=== PATIENT | female | born 1990 | race Caucasian/White ===

== ENCOUNTER 2020-02-06 09:36 | Emergency (ER) | payer BC ==
[2020-02-06] MEDS ORDERED: Rhogam Plus 300 MCG IM ONE (09:37)
[2020-02-06 09:54] VITALS: BP 119/81
[2020-02-06 14:32] VITALS: PULSE 80; O2SAT 98
[2020-02-06 15:06] LABS: ABO TYPING A; Antibody Screen NEGATIVE (NEGATIVE); RH TYPING NEGATIVE
[2020-02-06 15:09] LABS: Appearance CLEAR (CLEAR); Bacteria RARE /HPF (NEGATIVE); Bilirubin NEGATIVE (NEGATIVE); Blood MODERATE Ery/ul (0-5); Epithelial Cells RARE /HPF (FEW); Glucose NEGATIVE (NEGATIVE); Ketones NEGATIVE (NEGATIVE); Leukocyte Esterase SMALL (NEGATIVE); Nitrite NEGATIVE (NEGATIVE); Protein,Urine Dip NEGATIVE (Negative); Specific Gravity 1.005 (1.005-1.025); Urobilinogen NEGATIVE mg/dL (0-1)
[2020-02-06 15:11] LABS: Bacteria Few; Clue Cells None Seen; Red Blood Cells Few; Trichomonas None Seen; White Blood Cells Few; Yeast None Seen
[2020-02-06 15:12] LABS: Hematocrit 37.5 % (35-47); Hemoglobin 11.9 gm/dl (12.0-16.0); Mean Cell Volume 82.2 fl (78-100); Mean Corpuscular Hemoglobin 26.1 pg (26-32); Mean Corpuscular Hgb Concent. 31.7 g/dl (32-36); Red Blood Count 4.56 M/mm3 (4.1-5.4); White Blood Count 8.8 K/mm3 (4.0-10.5)
[2020-02-06 15:13] LABS: Absolute Neutrophil Ct (ANC) 6.24 (1.4-6.9); BASOPHIL % 0.1 % (0.0-0.4); Basophil (Absolute #) 0.01 (0-0.4); Eosinophil (Absolute #) 0.18 (0-0.5); Glucose 87 mg/dL (74-106); Lymphocyte (Absolute #) 1.87 (1.0-4.6); Lymphocytes % 21.2 % (24.0-44.0); Mean Platelet Volume 11.3 fl (7.5-11.0); Monocyte (Absolute #) 0.54 (0.0-1.3); Monocytes % 6.1 % (0.0-12.0); Neutrophil % 70.6 % (36.0-66.0); Platelet Count 195 K/mm3 (150-450); Red Cell Distribution Width 14.6 % (11.5-14.0)
[2020-02-06 15:14] LABS: ALBUMIN 4.4 g/dL (3.5-5.0); ALKALINE PHOSPHATASE 58 U/L (38-126); BLOOD UREA NITROGEN 6 mg/dL (7-17); CHLORIDE 105 mmol/L (98-107); Calcium 9.7 mg/dL (8.4-10.2); Carbon Dioxide 26 mmol/L (22-30); Creatinine 1 0.77 mg/dL (0.52-1.04); Potassium 4.4 mmol/L (3.5-5.1); SGOT/AST 23 U/L (14-36); SGPT/ALT 17 U/L (0-35); SODIUM 138 mmol/L (137-145); Total Protein 7.5 g/dL (6.3-8.2)
[2020-02-06 15:15] LABS: ANION GAP 11.4 MEQ/L (5-15)
[2020-02-06 15:21] LABS: CHLAMYDIA DNA NEGATIVE (NEGATIVE); GC DNA Probe NEGATIVE (NEGATIVE)
--- NOTE | 2020-02-06 17:02 | XRAY ---
Indication: Bleeding. Two-dimensional transvaginal early OB ultrasound performed. Comparison: None for this . Uterus anteverted with single intrauterine gestational sac near the fundus. Mean sac diameter is 0.67 cm, too small to calculate gestational age. No pole, heart tones, or yolk sac also suggesting early . Left ovary demonstrates a 3.4 cm corpus luteal cyst. Remaining left and right ovaries unremarkable. No suspicious solid adnexal mass or free fluid. Impression: Single intrauterine gestational sac without pole/heart tones presumed early . Correlate with serial beta hCG and follow-up sonogram regarding viability.
== END 2020-02-06 13:58 | disposition home or self-care (01) ==
LOC: ED 09:36
DX: O26.851 Spotting complicating pregnancy, first trimester (principal); Z3A.01 Less than 8 weeks gestation of pregnancy
CPT/HCPCS: 36415; 76801; 80053; 81001; 84702; 84703; 85025; 86850; 86900; 86901; 87086; 87210; 87491; 87591; 96372; 99284; J2790

== ENCOUNTER 2020-02-20 11:20 | Emergency (ER) | payer BC ==
[2020-02-20] MEDS ORDERED: Sodium Chloride 0.9% 1000 ML 1,000 ML IV STA (11:54)
[2020-02-20] MEDS ORDERED: Pepcid 20 MG VIAL IV ONE ×2 (11:54→12:14)
[2020-02-20] MEDS ORDERED: Zofran 4 MG/2 ML VIAL IV ONE (11:54)
--- NOTE | 2020-02-20 12:07 | ERPHSYRPT ---
- History of Present Illness Time Seen by Provider: 02/20/20 11:41 Source: patient Exam Limitations: no limitations Patient Subjective Stated Complaint: vomiting Triage Nursing Assessment: pt to ED c/o vomiting since Wednesday morning. Saw Dr. Timmons Wednesday and was sent to ED for fluids. Kelvin changed meds but pt states vomiting has not decreased. last sucessful PO intake was Wednesday after leaving ED. has not been able to keep fluids or food down since. Pt reports hx vomiting during , states Dr Timmons informed pt she was possibly having mi scarriage. has been taking phenergan with no relief. denies pain at this time. bowel sounds active in all quads, pt states LBM 02/15. denies fever or COVID exposure Physician History: 29 years old 2 para 1 not sure about gestational age with history of hyperemesis gravidarum in previous presented in the ER with gradually worsening nausea and vomiting for the last 5 days. Patient reports she is unable to hold anything down. She has been switched to a different antiemetic with no improvement. She has been given fluid resuscitation. Denies any abdom inal pain/cramping, vaginal bleeding or discharge. Last ultrasound done almost 2 weeks ago showed gestational sac without pole but per patient her hCG was going up. She has been informed by Dr. Timmons but possible miscarriage. She has been dry heaving and vomiting so hard that now she has some taste of blood in her throat and noted some specks of blood in vomiting. No fever or chills reported. Timing/Duration: day(s) (5), gradual onset, worse Severity: severe Associated Symptoms: nausea, vomiting, weakness, No abdominal pain Allergies/Adverse Reactions: No Known Drug Allergies Allergy (Verified 02/20/20 11:37) Home Medications: Doxylamine Succinate/Vit B6 [Doxylamine-Pyridoxine 10-10 mg] 1 each PO BID 02/20/20 [History] Promethazine HCl 25 mg [Phenergan 25 mg] 25 mg PO DAILY 02/20/20 [History] Hx Tetanus, Diphtheria Vaccination/Date Given: Yes Hx Influenza Vaccination/Date Given: No Hx Pneumococcal Vaccination/Date Given: No Travel Risk - International Travel Have you traveled outside of the country in past 3 weeks: No - Coronavirus Screening Are you exhibiting any of the following symptoms?: Yes Symptoms: Vomiting/Diarrhea Close contact with a COVID-19 positive Pt in past 14-21 Days: No - Review of Systems Constitutional: Weakness Eyes: No Symptoms Ears, Nose, & Throat: No Symptoms Respiratory: No Symptoms Cardiac: No Symptoms Abdominal/Gastrointestinal: Nausea, Vomiting Genitourinary Symptoms: No Symptoms Musculoskeletal: No Symptoms Skin: No Symptoms Neurological: No Symptoms Psychological: No Symptoms Endocrine: No Symptoms Hematologic/Lymphatic: No Symptoms Immunological/Allergic: No Symptoms - Past Medical History Pertinent Past Medical History: No Neurological History: No Pertinent History ENT History: No Pertinent History Cardiac History: No Pertinent History Respiratory History: No Pertinent History Endocrine Medical History: No Pertinent History Musculoskeletal History: No Pertinent History GI Medical History: No Pertinent History History: No Pertinent History Psycho-Social History: No Pertinent History Female Reproductive Disorders: No Pertinent History - Past Surgical History Past Surgical History: Yes (Behind ear) Neuro Surgical History: No Pertinent History Cardiac: No Pertinent History Respiratory: No Pertinent History Gastrointestinal: No Pertinent History Genitourinary: No Pertinent History Musculoskeletal: No Pertinent History Female Surgical History: No Pertinent History Other Surgical History: LEFT EAR SURGERY, cyst removed from L Foot - Social History Smoking Status: Never smoker Exposure to second hand smoke: No Drug Use: none Patient Lives Alone: No - Female History Hx Now: No - Nursing Vital Signs Nursing Vital Signs: Initial Vital Signs Pulse Rate 78 02/20/20 12:26 Respiratory Rate 18 02/20/20 12:26 Blood Pressure 126/74 02/20/20 12:26 O2 Sat by Pulse Oximetry 98 02/20/20 12:26 Pain Scale Pain Intensity 0 - Physical Exam General Appearance: no apparent distress, alert Eye Exam: PERRL/EOMI, scleral icterus Ears, Nose, Throat Exam: normal ENT inspection, TMs normal, pharynx normal Neck Exam: normal inspection, non-tender, supple, full range of motion Respiratory Exam: normal breath sounds Cardiovascular Exam: regular rate/rhythm, normal heart sounds Gastrointestinal/Abdomen Exam: soft, normal bowel sounds, No tenderness Back Exam: normal inspection Extremity Exam: normal inspection, normal range of motion Neurologic Exam: alert, oriented x 3, cooperative Skin Exam: normal color, warm SpO2 Interpretation: normal O2 Delivery: Room Air Ordered Tests: Active Orders 24 hr Category Date Time Status IV Insertion STAT Care 02/20/20 11:54 Active AMYLASE Stat Lab 02/20/20 12:01 Completed CBC W DIFF Stat Lab 02/20/20 12:01 Completed CMP Stat Lab 02/20/20 12:01 Completed HCG, Quantitative (Inhouse) Stat Lab 02/20/20 12:01 Completed LIPASE Stat Lab 02/20/20 12:01 Completed UA W/RFX UR CULTURE Stat Lab 02/20/20 12:26 Ordered Medication Summary Discontinued Medications Generic Name Dose Route Start Last Admin Trade Name Freq PRN Reason Stop Dose Admin Famotidine 20 mg 02/20/20 11:54 02/20/20 12:17 Pepcid 20 Mg Vial IV 02/20/20 11:55 20 mg STAT ONE Administration Famotidine Confirm 02/20/20 12:14 Pepcid 20 Mg Vial Administered 02/20/20 12:15 Dose 20 mg IV .STK-MED ONE Sodium Chloride 1,000 mls @ 999 mls/hr 02/20/20 11:54 02/20/20 13:29 Sodium Chloride 0.9% 1000 Ml IV 02/20/20 12:54 Infused .Q1H1M STA Infusion Sodium Chloride Confirm 02/20/20 12:14 Sodium Chloride 0.9% 1000 Ml Administered 02/20/20 12:15 Dose 1,000 mls @ ud .ROUTE .STK-MED ONE Ondansetron HCl 4 mg 02/20/20 11:54 02/20/20 12:17 Zofran 4 Mg/2 Ml Vial IV 02/20/20 11:55 4 mg STAT ONE Administration Ondansetron HCl Confirm 02/20/20 12:14 Zofran 4 Mg/2 Ml Vial Administered 02/20/20 12:15 Dose 4 mg .ROUTE .STK-MED ONE Lab/Rad Data: Laboratory Result Diagrams 02/20/20 12:01 02/20/20 12:01 Laboratory Results 02/20/20 02/20/20 Range/Units 12:01 12:01 WBC 8.1 (4.0-10.5) K/mm3 RBC 4.78 (4.1-5.4) M/mm3 Hgb 12.3 (12.0-16.0) gm/dl Hct 38.3 (35-47) % MCV 80.1 (78-100) fl MCH 25.7 L (26-32) pg MCHC 32.1 (32-36) g/dl RDW 14.0 (11.5-14.0) % Plt Count 181 (150-450) K/mm3 MPV 12.0 H (7.5-11.0) fl Gran % 72.9 H (36.0-66.0) % Eos # (Auto) 0.08 (0-0.5) Absolute Lymphs (auto) 1.66 (1.0-4.6) Absolute Monos (auto) 0.45 (0.0-1.3) Lymphocytes % 20.4 L (24.0-44.0) % Monocytes % 5.5 (0.0-12.0) % Eosinophils % 1.0 (0.00-5.0) % Basophils % 0.2 (0.0-0.4) % Absolute Granulocytes 5.91 (1.4-6.9) Basophils # 0.02 (0-0.4) Sodium 137 (137-145) mmol/L Potassium 3.9 (3.5-5.1) mmol/L Chloride 103 (98-107) mmol/L Carbon Dioxide 26 (22-30) mmol/L Anion Gap 12.1 (5-15) MEQ/L BUN 10 (7-17) mg/dL Creatinine 0.71 (0.52-1.04) mg/dL Estimated GFR > 60.0 ML/MIN Glucose 80 (74-106) mg/dL Calcium 9.6 (8.4-10.2) mg/dL Total Bilirubin 1.20 (0.2-1.3) mg/dL AST 61 H (14-36) U/L ALT 86 H (0-35) U/L Alkaline Phosphatase 57 (38-126) U/L Serum Total Protein 7.9 (6.3-8.2) g/dL Albumin 4.6 (3.5-5.0) g/dL Amylase 47 (30-110) U/L Lipase 24 (23-300) U/L Beta HCG, Quant [id number] mIU/ml - Progress Progress: improved, re-examined Progress Note: 02/20/20 14:25 29 years old is evaluated for worsening nausea vomiting with . She is given Zofran IV and fluids and did not have vomiting after that. Baseline labs are obtained which are grossly unremarkable. Discussed with Dr. Timmons and patient has been started on Dicligis yesterday and she does have Zofran and Phenergan to take as needed. Dr. Timmons will schedule outpatient ultrasound in the office. Do not think patient needs to be admitted. Discussed plan with patient in detail who understand and agrees with it. Stable for discharge. Counseled pt/family regarding: lab results, diagnosis, need for follow-up - Departure Departure Disposition: Home Clinical Impression: Hyperemesis gravidarum Condition: Stable Critical Care Time: No Referrals: GERTRUDIS TIMMONS MD [Primary Care Provider] - (1-2 days for reevaluation) Instructions: Hyperemesis Gravidarum, Nausea and Vomiting of (DC) Additional Instructions: Continue with Dicligis and take Zofran/Phenergan as needed. Drink plenty of fluids. Follow-up with primary OB for reevaluation in 1 to 2 days. Return to ER for any worsening.
[2020-02-20] MEDS ORDERED: Zofran 4 MG/2 ML VIAL ONE (12:14)
[2020-02-20] MEDS ORDERED: Sodium Chloride 0.9% 1000 ML 1,000 ML ONE (12:14)
[2020-02-20 12:15] LABS: Absolute Neutrophil Ct (ANC) 5.91 (1.4-6.9); BASOPHIL % 0.2 % (0.0-0.4); Basophil (Absolute #) 0.02 (0-0.4); Eosinophil (Absolute #) 0.08 (0-0.5); Hematocrit 38.3 % (35-47); Hemoglobin 12.3 gm/dl (12.0-16.0); Lymphocyte (Absolute #) 1.66 (1.0-4.6); Lymphocytes % 20.4 % (24.0-44.0); Mean Cell Volume 80.1 fl (78-100); Mean Corpuscular Hemoglobin 25.7 pg (26-32); Mean Corpuscular Hgb Concent. 32.1 g/dl (32-36); Monocyte (Absolute #) 0.45 (0.0-1.3); Monocytes % 5.5 % (0.0-12.0); Neutrophil % 72.9 % (36.0-66.0); Platelet Count 181 K/mm3 (150-450); Red Blood Count 4.78 M/mm3 (4.1-5.4); White Blood Count 8.1 K/mm3 (4.0-10.5)
[2020-02-20 12:45] LABS: ALBUMIN 4.6 g/dL (3.5-5.0); ALKALINE PHOSPHATASE 57 U/L (38-126); AMYLASE 47 U/L (30-110); ANION GAP 12.1 MEQ/L (5-15); BLOOD UREA NITROGEN 10 mg/dL (7-17); CHLORIDE 103 mmol/L (98-107); Calcium 9.6 mg/dL (8.4-10.2); Carbon Dioxide 26 mmol/L (22-30); Creatinine 1 0.71 mg/dL (0.52-1.04); Glucose 80 mg/dL (74-106); LIPASE 24 U/L (23-300); Potassium 3.9 mmol/L (3.5-5.1); SGOT/AST 61 U/L (14-36); SGPT/ALT 86 U/L (0-35); SODIUM 137 mmol/L (137-145); Total Protein 7.9 g/dL (6.3-8.2)
[2020-02-20 13:08] VITALS: O2SAT 100
[2020-02-20 13:10] LABS: HCG, Quantitative (Inhouse) 116290 mIU/ml
[2020-02-20 14:13] VITALS: BP 121/73; PULSE 73
[2020-02-20 14:58] LABS: Appearance SLIGHTLY CLOUDY (CLEAR); Bilirubin SMALL (NEGATIVE); Blood NEGATIVE Ery/ul (0-5); Epithelial Cells RARE /HPF (FEW); Glucose NEGATIVE (NEGATIVE); Ketones MODERATE (NEGATIVE); Leukocyte Esterase SMALL (NEGATIVE); Mucus SLIGHT /HPF (NEGATIVE); Nitrite NEGATIVE (NEGATIVE); Protein,Urine Dip 30 (Negative); Specific Gravity 1.027 (1.005-1.025); Urobilinogen 4 mg/dL (0-1)
== END 2020-02-20 14:40 | disposition home or self-care (01) ==
LOC: ED 11:20
DX: O21.0 Mild hyperemesis gravidarum (principal); Z3A.00 Weeks of gestation of pregnancy not specified
CPT/HCPCS: 36000; 36415; 80053; 81001; 82150; 83690; 84702; 85025; 87086; 96360; 96374; 96375; 99284; J2405

== ENCOUNTER 2020-03-04 07:35 | Emergency (ER) | payer BC ==
[2020-03-04] MEDS ORDERED: Sodium Chloride 0.9% 1000 ML 1,000 ML IV STA (07:51)
[2020-03-04] MEDS ORDERED: Zofran 4 MG/2 ML VIAL IV ONE (07:55)
[2020-03-04] MEDS ORDERED: Vitamin B-6 (Pyridoxine) 100 MG PO STA ×2 (08:09→08:20)
[2020-03-04] MEDS ORDERED: Zofran 4 MG/2 ML VIAL ONE (08:09)
[2020-03-04] MEDS ORDERED: Dextrose 5%-NS IV Solution 1000 ML 1,000 ML IV ONE (08:10)
[2020-03-04 08:16] LABS: Absolute Neutrophil Ct (ANC) 8.35 (1.4-6.9); Appearance TURBID (CLEAR); BASOPHIL % 0.1 % (0.0-0.4); Bacteria MANY /HPF (NEGATIVE); Basophil (Absolute #) 0.01 (0-0.4); Bilirubin SMALL (NEGATIVE); Blood NEGATIVE Ery/ul (0-5); Eosinophil % 0.7 % (0.00-5.0); Eosinophil (Absolute #) 0.07 (0-0.5); Epithelial Cells MODERATE /HPF (FEW); Glucose NEGATIVE (NEGATIVE); Hematocrit 40.9 % (35-47); Hemoglobin 13.3 gm/dl (12.0-16.0); Ketones SMALL (NEGATIVE); Leukocyte Esterase MODERATE (NEGATIVE); Lymphocyte (Absolute #) 1.47 (1.0-4.6); Lymphocytes % 14.3 % (24.0-44.0); Mean Cell Volume 79.6 fl (78-100); Mean Corpuscular Hemoglobin 25.9 pg (26-32); Mean Corpuscular Hgb Concent. 32.5 g/dl (32-36); Mean Platelet Volume 11.2 fl (7.5-11.0); Monocyte (Absolute #) 0.37 (0.0-1.3); Monocytes % 3.6 % (0.0-12.0); Mucus MANY /HPF (NEGATIVE); Neutrophil % 81.3 % (36.0-66.0); Nitrite NEGATIVE (NEGATIVE); Platelet Count 242 K/mm3 (150-450); Protein,Urine Dip 100 (Negative); Red Blood Count 5.14 M/mm3 (4.1-5.4); Red Cell Distribution Width 14.1 % (11.5-14.0); Specific Gravity 1.034 (1.005-1.025); Urobilinogen 2 mg/dL (0-1); WBC 51-100 /HPF (0-5); White Blood Count 10.3 K/mm3 (4.0-10.5)
[2020-03-04] MEDS ORDERED: Dextrose 5%-NS IV Solution 1000 ML 1,000 ML IV SCH (08:30)
[2020-03-04 08:32] LABS: ALBUMIN 4.6 g/dL (3.5-5.0); ALKALINE PHOSPHATASE 69 U/L (38-126); ANION GAP 14.2 MEQ/L (5-15); BLOOD UREA NITROGEN 9 mg/dL (7-17); CHLORIDE 101 mmol/L (98-107); Calcium 10.1 mg/dL (8.4-10.2); Carbon Dioxide 26 mmol/L (22-30); Creatinine 1 0.77 mg/dL (0.52-1.04); Glucose 90 mg/dL (74-106); LIPASE 50 U/L (23-300); Potassium 4.2 mmol/L (3.5-5.1); SGOT/AST 26 U/L (14-36); SGPT/ALT 35 U/L (0-35); SODIUM 137 mmol/L (137-145)
[2020-03-04 08:42] VITALS: O2SAT 98
[2020-03-04] MEDS ORDERED: Macrobid 100MG Capsule ONE (08:56)
[2020-03-04] MEDS ORDERED: Macrobid 100MG Capsule PO ONE (08:59)
--- NOTE | 2020-03-04 09:05 | ERPHSYRPT ---
- History of Present Illness Time Seen by Provider: 03/04/20 07:45 Source: patient Exam Limitations: no limitations Patient Subjective Stated Complaint: PT states "I was diagnosed with hyperemesis and none of my medicine is working. I take zofran, phenergan and diclegious." Triage Nursing Assessment: Pt presented alert and oriented X 3, skin pwd Pt ambulates with an upright steady gait, able to speak in clear full sentences. Pt carrying a trash can. Physician History: Patient is a 29-year-old female M0 presents to our ED with complaints of persistent nausea and vomiting since yesterday evening. Patient states she cannot tolerate p.o. patient states without much improvement. She has tried taking Zofran, Phenergan and diclegis no associated pain. No fevers. No vaginal bleeding. No vaginal discharge or pelvic cramping. Symptoms are persistent. Symptoms are mild to moderate in intensity. No specific worsening or improving factors. Patient voices no other complaints at this time. Timing/Duration: yesterday Severity: moderate Modifying Factors: Improves With: nothing Associated Symptoms: denies symptoms (No vaginal bleeding. No vaginal discharge. No pelvic cramping.), No abdominal pain, No shortness of breath, No rash Allergies/Adverse Reactions: No Known Drug Allergies Allergy (Verified 02/20/20 11:37) Home Medications: Promethazine HCl 25 mg [Phenergan 25 mg] 25 mg PO DAILY 02/20/20 [History] Doxylamine Succinate/Vit B6 [Doxylamine-Pyridoxine 10-10 mg] 1 tab PO BID 03/04/20 [History] Ondansetron [Ondansetron Odt] 4 mg PO DAILY 03/04/20 [History] Hx Tetanus, Diphtheria Vaccination/Date Given: No Hx Influenza Vaccination/Date Given: No Hx Pneumococcal Vaccination/Date Given: No Immunizations Up to Date: Yes Travel Risk - International Travel Have you traveled outside of the country in past 3 weeks: No - Coronavirus Screening Are you exhibiting any of the following symptoms?: No Close contact with a COVID-19 positive Pt in past 14-21 Days: No - Review of Systems Constitutional: No Symptoms, No Fever, No Chills Eyes: No Symptoms Ears, Nose, & Throat: No Symptoms Respiratory: No Symptoms, No Cough, No Dyspnea Cardiac: No Symptoms, No Chest Pain, No Edema, No Syncope Abdominal/Gastrointestinal: No Symptoms, No Abdominal Pain, No Nausea, No Vomiting, No Diarrhea Genitourinary Symptoms: No Symptoms, No Dysuria Musculoskeletal: No Symptoms, No Back Pain, No Neck Pain Skin: No Symptoms, No Rash Neurological: No Symptoms, No Dizziness, No Focal Weakness, No Sensory Changes Psychological: No Symptoms Endocrine: No Symptoms Hematologic/Lymphatic: No Symptoms Immunological/Allergic: No Symptoms All Other Systems: Reviewed and Negative - Past Medical History Pertinent Past Medical History: No Neurological History: No Pertinent History ENT History: No Pertinent History Cardiac History: No Pertinent History Respiratory History: No Pertinent History Endocrine Medical History: No Pertinent History Musculoskeletal History: No Pertinent History GI Medical History: No Pertinent History History: No Pertinent History Psycho-Social History: No Pertinent History Female Reproductive Disorders: No Pertinent History - Past Surgical History Past Surgical History: Yes (Behind ear) Neuro Surgical History: No Pertinent History Cardiac: No Pertinent History Respiratory: No Pertinent History Gastrointestinal: No Pertinent History Genitourinary: No Pertinent History Musculoskeletal: No Pertinent History Female Surgical History: No Pertinent History Other Surgical History: LEFT EAR SURGERY, cyst removed from L Foot - Social History Smoking Status: Never smoker Exposure to second hand smoke: No Drug Use: none Patient Lives Alone: No - Female History Hx Last Menstrual Period: 12/06/2019 Hx Now: Yes Expected Date of Delivery: 10/12/20 - Nursing Vital Signs Nursing Vital Signs: Initial Vital Signs Temperature 98.6 F 03/04/20 07:45 Pulse Rate 84 03/04/20 07:45 Respiratory Rate 20 03/04/20 07:45 Blood Pressure 139/86 03/04/20 07:45 O2 Sat by Pulse Oximetry 100 03/04/20 07:45 Pain Scale Pain Intensity 0 - Physical Exam General Appearance: no apparent distress, alert Eye Exam: PERRL/EOMI, eyes nml inspection Ears, Nose, Throat Exam: normal ENT inspection, TMs normal, pharynx normal, moist mucous membranes Neck Exam: normal inspection, non-tender, supple, full range of motion Respiratory Exam: normal breath sounds, lungs clear, No respiratory distress Cardiovascular Exam: regular rate/rhythm, normal heart sounds, normal peripheral pulses Gastrointestinal/Abdomen Exam: soft, normal bowel sounds, No tenderness, No mass Pelvic Exam: not done Back Exam: normal inspection, normal range of motion, No CVA tenderness, No vertebral tenderness Extremity Exam: normal inspection, normal range of motion, pelvis stable Neurologic Exam: alert, oriented x 3, cooperative, normal mood/affect, nml cerebellar function, nml station & gait, sensation nml, No motor deficits Skin Exam: normal color, warm, dry, No rash Lymphatic Exam: No adenopathy SpO2 Interpretation: normal SpO2: 98 O2 Delivery: Room Air - Course Nursing assessment & vital signs reviewed: Yes Ordered Tests: Active Orders 24 hr Category Date Time Status IV Insertion STAT Care 03/04/20 07:51 Active CBC W DIFF Stat Lab 03/04/20 08:05 Completed CMP Stat Lab 03/04/20 08:05 Completed CULTURE,URINE Stat Lab 03/04/20 08:05 Received LIPASE Stat Lab 03/04/20 08:05 Completed TROPONIN Q3H Lab 03/04/20 08:05 Received TROPONIN Q3H Lab 03/04/20 11:00 Ordered TROPONIN Q3H Lab 03/04/20 14:00 Ordered TROPONIN Q3H Lab 03/04/20 17:00 Ordered TROPONIN Q3H Lab 03/04/20 20:00 Ordered UA W/RFX UR CULTURE Stat Lab 03/04/20 08:05 Completed Medication Summary Generic Name Dose Route Start Last Admin Trade Name Freq PRN Reason Stop Dose Admin Dextrose/Sodium Chloride 1,000 mls @ 200 mls/hr 03/04/20 08:30 03/04/20 08:13 Dextrose 5%-Ns Iv Solution 1000 Ml IV 04/03/20 08:29 200 mls/hr .Q5H LUCIANO Administration Discontinued Medications Generic Name Dose Route Start Last Admin Trade Name Freq PRN Reason Stop Dose Admin Sodium Chloride 1,000 mls @ 999 mls/hr 03/04/20 07:51 03/04/20 08:23 Sodium Chloride 0.9% 1000 Ml IV 03/04/20 08:51 Not Given .Q1H1M STA Nitrofurantoin Macrocrystals Confirm 03/04/20 08:56 Macrobid 100mg Capsule Administered 03/04/20 08:57 Dose 100 mg .ROUTE .STK-MED ONE Nitrofurantoin Macrocrystals 100 mg 03/04/20 08:59 03/04/20 08:59 Macrobid 100mg Capsule PO 03/04/20 09:00 100 mg STAT ONE Administration Ondansetron HCl 4 mg 03/04/20 07:55 03/04/20 08:14 Zofran 4 Mg/2 Ml Vial IV 03/04/20 07:56 4 mg STAT ONE Administration Ondansetron HCl Confirm 03/04/20 08:09 Zofran 4 Mg/2 Ml Vial Administered 03/04/20 08:10 Dose 4 mg .ROUTE .STK-MED ONE Pyridoxine HCl 10 mg 03/04/20 08:09 03/04/20 08:24 Vitamin B-6 (Pyridoxine) 100 Mg PO 03/04/20 08:10 Not Given ONCE STA Pyridoxine HCl 12.5 mg 03/04/20 08:20 03/04/20 08:28 Vitamin B-6 (Pyridoxine) 100 Mg PO 03/04/20 08:21 12.5 mg ONCE STA Administration Lab/Rad Data: Laboratory Result Diagrams 03/04/20 08:05 03/04/20 08:05 Laboratory Results 03/04/20 03/04/20 03/04/20 Range/Units 08:05 08:05 08:05 WBC (4.0-10.5) K/mm3 RBC (4.1-5.4) M/mm3 Hgb (12.0-16.0) gm/dl Hct (35-47) % MCV (78-100) fl MCH (26-32) pg MCHC (32-36) g/dl RDW (11.5-14.0) % Plt Count (150-450) K/mm3 MPV (7.5-11.0) fl Gran % (36.0-66.0) % Eos # (Auto) (0-0.5) Absolute Lymphs (auto) (1.0-4.6) Absolute Monos (auto) (0.0-1.3) Lymphocytes % (24.0-44.0) % Monocytes % (0.0-12.0) % Eosinophils % (0.00-5.0) % Basophils % (0.0-0.4) % Absolute Granulocytes (1.4-6.9) Basophils # (0-0.4) Sodium 137 (137-145) mmol/L Potassium 4.2 (3.5-5.1) mmol/L Chloride 101 (98-107) mmol/L Carbon Dioxide 26 (22-30) mmol/L Anion Gap 14.2 (5-15) MEQ/L BUN 9 (7-17) mg/dL Creatinine 0.77 (0.52-1.04) mg/dL Estimated GFR > 60.0 ML/MIN Glucose 90 (74-106) mg/dL Calcium 10.1 (8.4-10.2) mg/dL Total Bilirubin 0.70 (0.2-1.3) mg/dL AST 26 (14-36) U/L ALT 35 (0-35) U/L Alkaline Phosphatase 69 (38-126) U/L Troponin I < 0.012 (0.000-0.034) ng/mL Serum Total Protein 8.0 (6.3-8.2) g/dL Albumin 4.6 (3.5-5.0) g/dL Lipase 50 (23-300) U/L Urine Color MADELEINE (YELLOW) Urine Appearance TURBID (CLEAR) Urine pH 5.0 (5-6) Ur Specific [place] 1.034 (1.005-1.025) Urine Protein 100 (Negative) Urine Ketones SMALL (NEGATIVE) Urine Blood NEGATIVE (0-5) Nathan/ul Urine Nitrite NEGATIVE (NEGATIVE) Urine Bilirubin SMALL (NEGATIVE) Urine Urobilinogen 2 (0-1) mg/dL Ur Leukocyte Esterase MODERATE (NEGATIVE) Urine WBC (Auto) 51-100 (0-5) /HPF Urine RBC (Auto) 6-10 (0-2) /HPF U Epithel Cells (Auto) MODERATE (FEW) /HPF Urine Bacteria (Auto) MANY (NEGATIVE) /HPF Urine Mucus (Auto) MANY (NEGATIVE) /HPF Urine Culture Reflexed YES (NO) Urine Glucose NEGATIVE (NEGATIVE) mg/dL 03/04/20 Range/Units 08:05 WBC 10.3 (4.0-10.5) K/mm3 RBC 5.14 (4.1-5.4) M/mm3 Hgb 13.3 (12.0-16.0) gm/dl Hct 40.9 (35-47) % MCV 79.6 (78-100) fl MCH 25.9 L (26-32) pg MCHC 32.5 (32-36) g/dl RDW 14.1 H (11.5-14.0) % Plt Count 242 (150-450) K/mm3 MPV 11.2 H (7.5-11.0) fl Gran % 81.3 H (36.0-66.0) % Eos # (Auto) 0.07 (0-0.5) Absolute Lymphs (auto) 1.47 (1.0-4.6) Absolute Monos (auto) 0.37 (0.0-1.3) Lymphocytes % 14.3 L (24.0-44.0) % Monocytes % 3.6 (0.0-12.0) % Eosinophils % 0.7 (0.00-5.0) % Basophils % 0.1 (0.0-0.4) % Absolute Granulocytes 8.35 H (1.4-6.9) Basophils # 0.01 (0-0.4) Sodium (137-145) mmol/L Potassium (3.5-5.1) mmol/L Chloride (98-107) mmol/L Carbon Dioxide (22-30) mmol/L Anion Gap (5-15) MEQ/L BUN (7-17) mg/dL Creatinine (0.52-1.04) mg/dL Estimated GFR ML/MIN Glucose (74-106) mg/dL Calcium (8.4-10.2) mg/dL Total Bilirubin (0.2-1.3) mg/dL AST (14-36) U/L ALT (0-35) U/L Alkaline Phosphatase (38-126) U/L Troponin I (0.000-0.034) ng/mL Serum Total Protein (6.3-8.2) g/dL Albumin (3.5-5.0) g/dL Lipase (23-300) U/L Urine Color (YELLOW) Urine Appearance (CLEAR) Urine pH (5-6) Ur Specific [place] (1.005-1.025) Urine Protein (Negative) Urine Ketones (NEGATIVE) Urine Blood (0-5) Nathan/ul Urine Nitrite (NEGATIVE) Urine Bilirubin (NEGATIVE) Urine Urobilinogen (0-1) mg/dL Ur Leukocyte Esterase (NEGATIVE) Urine WBC (Auto) (0-5) /HPF Urine RBC (Auto) (0-2) /HPF U Epithel Cells (Auto) (FEW) /HPF Urine Bacteria (Auto) (NEGATIVE) /HPF Urine Mucus (Auto) (NEGATIVE) /HPF Urine Culture Reflexed (NO) Urine Glucose (NEGATIVE) mg/dL - Progress Progress: improved Progress Note: 03/04/20 09:11 Patient reassessed. Nausea resolved. She tolerated p.o. UA reveals urinary tract infection. Patient received a dose of Macrobid. Second dose to be administered tonight. A prescription for the same was transmitted to her pharmacy. Patient requesting discharge as she feels much better. Plan of care discussed with patient. She agrees to follow-up with her primary care doctor within 48 hours for reevaluation. heart tones not observed likely due to early GA 03/04/20 09:14 Counseled pt/family regarding: lab results, diagnosis, need for follow-up - Departure Departure Disposition: Home Clinical Impression: Hyperemesis, Hyperemesis gravidarum, Condition: Stable Critical Care Time: No Referrals: GERTRUDIS TIMMONS MD [Primary Care Provider] - Instructions: Nausea and Vomiting of (DC) Additional Instructions: Discharge/Care Plan CATIA MITCHELL was seen on 03/04/20 in the Emergency Room. The patient was counseled regarding Diagnosis,Lab results, Imaging studies, need for follow up and when to return to the Emergency Room. Prescriptions given: Discharge Note I have spoken with the patient and/or caregivers. I have explained the patient's condition, diagnosis and treatment plan based on the information available to me at this time. I have answered the patient's and/or caregiver's questions and addressed any concerns. The patient and/or caregivers have as good understanding of the patient's diagnosis, condition and treatment plan as can be expected at this point. The vital signs have been stable. The patient's condition is stable and appropriate for discharge from the emergency department. The patient will pursue further outpatient evaluation with the primary care phys ician or other designated or consulting physician as outlined in the discharge instructions. The patient and/or caregivers are agreeable to this plan of care and follow-up instructions have been explained in detail. The patient and/or caregivers have received these instruction. The patient/and or caregivers are aware that any significant change in condition or worsening of symptoms should prompt an immediate return to this or the closest emergency department or call 911. Prescriptions: Nitrofurantoin Macro 100 mg [Macrobid 100MG Capsule] 100 mg PO BID 7 Days #14 capsule
[2020-03-04 09:26] VITALS: BP 90/62; PULSE 79
== END 2020-03-04 09:24 | disposition home or self-care (01) ==
LOC: ED 07:35
DX: O21.0 Mild hyperemesis gravidarum (principal); Z3A.13 13 weeks gestation of pregnancy; Z79.899 Other long term (current) drug therapy; O23.41 Unspecified infection of urinary tract in pregnancy, first trimester
CPT/HCPCS: 36000; 36415; 80053; 81001; 83690; 84484; 85025; 87086; 96360; 96374; 99284; J2405; A9270-GY

== ENCOUNTER 2020-03-04 16:49 | Observation (INO) | payer BC ==
[2020-03-04] MEDS ORDERED: TYLENOL 325 MG PO PRN (17:13)
[2020-03-04] MEDS ORDERED: Lactated Ringers 1,000 ML IV SCH (17:30)
[2020-03-04] MEDS: Zofran 4 MG/2 ML VIAL IV PRN ×2 (17:32→22:05)
[2020-03-04] MEDS: ROCEPHIN 1 Gm-D5w 50 ml Bag** 1 G/50 ML IVPB IV SCH (18:30)
[2020-03-04] MEDS: Lactated Ringers 1,000 ML IV SCH (18:30)
[2020-03-04] MEDS: Compazine 10 MG/2 ML IV PRN (18:50)
[2020-03-04] MEDS: PATIENT OWN MEDICATION PO SCH (21:03)
[2020-03-05] MEDS: Lactated Ringers 1,000 ML IV SCH ×2 (03:50→13:50)
[2020-03-05] MEDS: Zofran 4 MG/2 ML VIAL IV PRN ×3 (03:50→13:51)
[2020-03-05 04:43] LABS: BASOPHIL % 0.1 % (0.0-0.4); Basophil (Absolute #) 0.01 (0-0.4); Eosinophil % 1.7 % (0.00-5.0); Eosinophil (Absolute #) 0.16 (0-0.5); Hematocrit 33.8 % (35-47); Hemoglobin 10.9 gm/dl (12.0-16.0); Lymphocyte (Absolute #) 2.69 (1.0-4.6); Lymphocytes % 28.2 % (24.0-44.0); Mean Cell Volume 80.5 fl (78-100); Mean Corpuscular Hgb Concent. 32.2 g/dl (32-36); Mean Platelet Volume 10.4 fl (7.5-11.0); Monocyte (Absolute #) 0.59 (0.0-1.3); Monocytes % 6.2 % (0.0-12.0); Neutrophil % 63.8 % (36.0-66.0); Platelet Count 197 K/mm3 (150-450); White Blood Count 9.6 K/mm3 (4.0-10.5)
[2020-03-05 05:05] LABS: ANION GAP 10.7 MEQ/L (5-15); BLOOD UREA NITROGEN 9 mg/dL (7-17); CHLORIDE 104 mmol/L (98-107); Calcium 9.2 mg/dL (8.4-10.2); Carbon Dioxide 24 mmol/L (22-30); Creatinine 1 0.63 mg/dL (0.52-1.04); Glucose 83 mg/dL (74-106); Potassium 3.7 mmol/L (3.5-5.1); SODIUM 135 mmol/L (137-145)
--- NOTE | 2020-03-05 08:08 | PCM.HP ---
History of Present Illness - Chief Complaint Chief Complaint: dehydration, vomiting, hyperemesis gravidarum, UTI History of Present Illness: is a 29 year old female at 8 3/7 wks EGA with hyperemesis, admitted with persistent nausea and vomiting. She has been unable to tolerate any po intake for the past several days, had some blood in her vomitus and a sore throat, has been on zofran, diclegis and promethazine without much help. - Review of Systems Constitutional: No Fever, No Chills Respiratory: No Cough, No Short Of Breath Cardiac: No Chest Pain, No Edema, No Syncope Abdominal/Gastrointestinal: Nausea, Vomiting Genitourinary Symptoms: No Dysuria Musculoskeletal: No Back Pain, No Neck Pain Skin: No Rash All Other Systems: Reviewed and Negative Medications & Allergies Home Medications: Home Medication List Promethazine HCl 25 mg [Phenergan 25 mg] 25 mg PO Q6H PRN PRN 02/20/20 [History Confirmed 03/04/20] Nitrofurantoin Macro 100 mg [Macrobid 100MG Capsule] 100 mg PO BID 7 Days #14 capsule 03/04/20 [Rx Confirmed 03/04/20] Ondansetron [Ondansetron Odt] 4 mg PO Q4-6HPRN PRN 03/04/20 [History Confirmed 03/04/20] Allergies/Adverse Reactions: Allergies Allergy/AdvReac Type Severity Reaction Status Date / Time No Known Drug Allergies Allergy Verified 02/20/20 11:37 - Past Medical History Past Medical History: No Neurological History: No Pertinent History ENT History: No Pertinent History Cardiac History: No Pertinent History Respiratory History: No Pertinent History Endocrine Medical History: No Pertinent History Musculoskelatal History: No Pertinent History GI Medical History: No Pertinent History History: No Pertinent History Pyscho-Social History: No Pertinent History Reproductive Disorders: No Pertinent History - Female History Hx Last Menstrual Period: 12/13/2019 Are you now?: Yes - Past Surgical History Past Surgical History: Yes (Behind ear) Neuro Surgical History: No Pertinent History Cardiac History: No Pertinent History Respiratory Surgery: No Pertinent History GI Surgical History: No Pertinent History Genitourinary Surgical Hx: No Pertinent History Musculskeletal Surgical Hx: No Pertinent History Female Surgical History: No Pertinent History Other Surgical History: LEFT EAR SURGERY, cyst removed from L Foot - Social History Smoking Status: Never smoker Exposure to second hand smoke: No Alcohol: None Drug Use: none - Physical Exam Vital Signs: Vital Signs - 24 hr Temp Pulse Resp BP Pulse Ox 03/05/20 04:00 98.4 F 78 18 115/61 97 03/05/20 00:00 98.4 F 99 H 16 114/68 97 03/04/20 19:06 98.2 F 76 18 119/68 100 03/04/20 17:12 98.3 F 77 18 129/79 97 General Appearance: no apparent distress, alert Respiratory Exam: normal breath sounds Cardiovascular Exam: regular rate/rhythm, normal heart sounds, normal peripheral pulses Gastrointestinal/Abdomen Exam: soft, normal bowel sounds, No tenderness, No mass Extremity Exam: normal inspection, normal range of motion, pelvis stable Skin Exam: normal color, warm, dry, No rash Results - Labs Lab/Micro Results: Lab Results-Last 24 Hours 03/05/20 03/05/20 Range/Units 04:35 04:35 WBC 9.6 (4.0-10.5) K/mm3 RBC 4.20 (4.1-5.4) M/mm3 Hgb 10.9 L (12.0-16.0) gm/dl Hct 33.8 L (35-47) % MCV 80.5 (78-100) fl MCH 26.0 (26-32) pg MCHC 32.2 (32-36) g/dl RDW 14.0 (11.5-14.0) % Plt Count 197 (150-450) K/mm3 MPV 10.4 (7.5-11.0) fl Gran % 63.8 (36.0-66.0) % Eos # (Auto) 0.16 (0-0.5) Absolute Lymphs (auto) 2.69 (1.0-4.6) Absolute Monos (auto) 0.59 (0.0-1.3) Lymphocytes % 28.2 (24.0-44.0) % Monocytes % 6.2 (0.0-12.0) % Eosinophils % 1.7 (0.00-5.0) % Basophils % 0.1 (0.0-0.4) % Absolute Granulocytes 6.10 (1.4-6.9) Basophils # 0.01 (0-0.4) Sodium 135 L (137-145) mmol/L Potassium 3.7 (3.5-5.1) mmol/L Chloride 104 (98-107) mmol/L Carbon Dioxide 24 (22-30) mmol/L Anion Gap 10.7 (5-15) MEQ/L BUN 9 (7-17) mg/dL Creatinine 0.63 (0.52-1.04) mg/dL Estimated GFR > 60.0 ML/MIN Glucose 83 (74-106) mg/dL Calcium 9.2 (8.4-10.2) mg/dL Assessment/Plan (1) Hyperemesis gravidarum Current Visit: No Status: Acute Assessment & Plan: rehydrating, anti-emetics Code(s): O21.0 - MILD HYPEREMESIS GRAVIDARUM (2) Dehydration Current Visit: No Status: Acute Code(s): E86.0 - DEHYDRATION
[2020-03-05] MEDS: ROCEPHIN 1 Gm-D5w 50 ml Bag** 1 G/50 ML IVPB IV SCH (09:42)
[2020-03-05] MEDS: PATIENT OWN MEDICATION PO SCH (09:43)
[2020-03-05] MEDS: Compazine 10 MG/2 ML IV PRN (11:32)
[2020-03-05 16:35] VITALS: BP 116/66; PULSE 80; O2SAT 98
== END 2020-03-05 16:44 | disposition home or self-care (01) ==
LOC: MED SURG 16:49
PROVIDERS: ADMIT Family Medicine; ATTEND Family Medicine
DX: O21.1 Hyperemesis gravidarum with metabolic disturbance (principal); Z3A.08 8 weeks gestation of pregnancy; O23.41 Unspecified infection of urinary tract in pregnancy, first trimester
CPT/HCPCS: 36415; 80048; 85025; G0378; J0696; J2405

== ENCOUNTER 2020-03-09 15:40 | Emergency (ER) | payer BC ==
[~2020-03-09 15:40] MED LIST: Lactated Ringers 1,000 ML IV ONE; Zofran 4 MG/2 ML VIAL IV PRN
[2020-03-09 15:47] LABS: Absolute Neutrophil Ct (ANC) 8.84 (1.4-6.9); BASOPHIL % 0.2 % (0.0-0.4); Basophil (Absolute #) 0.02 (0-0.4); Eosinophil % 1.2 % (0.00-5.0); Eosinophil (Absolute #) 0.13 (0-0.5); Hematocrit 42.7 % (35-47); Hemoglobin 13.5 gm/dl (12.0-16.0); Lymphocyte (Absolute #) 1.83 (1.0-4.6); Lymphocytes % 16.4 % (24.0-44.0); Mean Cell Volume 83.2 fl (78-100); Mean Corpuscular Hemoglobin 26.3 pg (26-32); Mean Corpuscular Hgb Concent. 31.6 g/dl (32-36); Monocyte (Absolute #) 0.35 (0.0-1.3); Monocytes % 3.1 % (0.0-12.0); Neutrophil % 79.1 % (36.0-66.0); Platelet Count 102 K/mm3 (150-450); Red Blood Count 5.13 M/mm3 (4.1-5.4); Red Cell Distribution Width 14.4 % (11.5-14.0); White Blood Count 11.2 K/mm3 (4.0-10.5)
[2020-03-09 16:01] LABS: ALBUMIN 4.1 g/dL (3.5-5.0); ALKALINE PHOSPHATASE 75 U/L (38-126); BLOOD UREA NITROGEN 8 mg/dL (7-17); CHLORIDE 103 mmol/L (98-107); Calcium 9.8 mg/dL (8.4-10.2); Carbon Dioxide 20 mmol/L (22-30); Creatinine 1 0.66 mg/dL (0.52-1.04); Glucose 84 mg/dL (74-106); Potassium 4.4 mmol/L (3.5-5.1); SGOT/AST 38 U/L (14-36); SGPT/ALT 56 U/L (0-35); SODIUM 135 mmol/L (137-145); Total Protein 7.9 g/dL (6.3-8.2)
[2020-03-09] MEDS ORDERED: Zofran 4 MG/2 ML VIAL ONE (16:17)
[2020-03-09] MEDS ORDERED: Lactated Ringers 1,000 ML IV ONE (16:17)
[2020-03-09] MEDS ORDERED: Sodium Chloride 0.9% 1000 ML 1,000 ML IV STA (16:34)
[2020-03-09 17:29] VITALS: BP 107/79; PULSE 81; O2SAT 100
[2020-03-09] MEDS: Phenergan 25 MG INJ IM ONE ×2 (18:08→18:44)
[2020-03-09] MEDS ORDERED: Phenergan 25 MG INJ ONE (18:08)
[2020-03-09 18:10] LABS: Appearance SLIGHTLY CLOUDY (CLEAR); Bilirubin NEGATIVE (NEGATIVE); Blood NEGATIVE Ery/ul (0-5); Epithelial Cells RARE /HPF (FEW); Glucose NEGATIVE (NEGATIVE); Ketones MODERATE (NEGATIVE); Leukocyte Esterase NEGATIVE (NEGATIVE); Mucus SLIGHT /HPF (NEGATIVE); Nitrite NEGATIVE (NEGATIVE); Protein,Urine Dip 30 (Negative); Specific Gravity 1.027 (1.005-1.025); Urobilinogen 4 mg/dL (0-1)
--- NOTE | 2020-03-09 18:21 | ERPHSYRPT ---
- History of Present Illness Time Seen by Provider: 03/09/20 16:20 Source: patient Exam Limitations: no limitations Patient Subjective Stated Complaint: Vomiting Triage Nursing Assessment: Patient brought to ED via w/c and transferred to bed per self. Patient A+O x3. Patient's skin pink, warm and dry. Patient states she is 9 weeks and has dx of hyperemesis gravadarum. Patient was discharged from hospital on Wednesday and has constantly continued to vomit. Patient complains of nausea. Patient denies pain or discomfort. Physician History: 29 years old 2 para 1 at 9 weeks gestation confirmed IUP via ultrasound with history of hyperemesis gravidarum who was recently admitted presented in the ER with multiple episodes of nonprojectile, nonbilious vomiting since yesterday. Patient is not able to hold much down. She has been taking anti- emetic with no significant improvement. She feels as if she is getting dehydrated. Patient reports having similar symptoms in the previous and had Zofran pump implant which she is going to go for soon. She denies any vaginal bleeding, discharge, pelvic cramping etc. Denies any urinary symptoms. No fever or chills. No abdominal pain. Timing/Duration: yesterday, intermittent, gradual onset Severity: moderate Modifying Factors: Improves With: nothing Associated Symptoms: nausea, vomiting, No abdominal pain Allergies/Adverse Reactions: No Known Drug Allergies Allergy (Verified 03/09/20 15:45) Home Medications: Promethazine HCl 25 mg [Phenergan 25 mg] 25 mg PO Q6H PRN PRN 02/20/20 [History] Ondansetron [Ondansetron Odt] 4 mg PO Q4-6HPRN PRN 03/04/20 [History] Hx Tetanus, Diphtheria Vaccination/Date Given: No Hx Influenza Vaccination/Date Given: No Hx Pneumococcal Vaccination/Date Given: No Immunizations Up to Date: Yes Travel Risk - International Travel Have you traveled outside of the country in past 3 weeks: No - Coronavirus Screening Are you exhibiting any of the following symptoms?: No Close contact with a COVID-19 positive Pt in past 14-21 Days: No - Review of Systems Constitutional: Fatigue, Weakness Eyes: No Symptoms Ears, Nose, & Throat: No Symptoms Respiratory: No Symptoms Cardiac: No Symptoms Abdominal/Gastrointestinal: Nausea, Vomiting, No Abdominal Pain, No Diarrhea Genitourinary Symptoms: No Symptoms Musculoskeletal: No Symptoms Skin: No Symptoms Neurological: No Symptoms Psychological: No Symptoms Endocrine: No Symptoms Hematologic/Lymphatic: No Symptoms Immunological/Allergic: No Symptoms - Past Medical History Pertinent Past Medical History: No Neurological History: No Pertinent History ENT History: No Pertinent History Cardiac History: No Pertinent History Respiratory History: No Pertinent History Endocrine Medical History: No Pertinent History Musculoskeletal History: No Pertinent History GI Medical History: No Pertinent History History: No Pertinent History Psycho-Social History: No Pertinent History Female Reproductive Disorders: No Pertinent History - Past Surgical History Past Surgical History: Yes (Behind ear) Neuro Surgical History: No Pertinent History Cardiac: No Pertinent History Respiratory: No Pertinent History Gastrointestinal: No Pertinent History Genitourinary: No Pertinent History Musculoskeletal: No Pertinent History Female Surgical History: No Pertinent History Other Surgical History: LEFT EAR SURGERY, cyst removed from L Foot - Social History Smoking Status: Never smoker Exposure to second hand smoke: No Drug Use: none Patient Lives Alone: No - Female History Hx Last Menstrual Period: November Hx Now: Yes Expected Date of Delivery: 10/12/20 - Nursing Vital Signs Nursing Vital Signs: Initial Vital Signs Temperature 98.0 F 03/09/20 16:18 Pulse Rate 83 03/09/20 16:18 Respiratory Rate 20 03/09/20 16:18 Blood Pressure 147/80 03/09/20 16:18 O2 Sat by Pulse Oximetry 100 03/09/20 16:18 Pain Scale Pain Intensity 0 - Physical Exam General Appearance: no apparent distress Eye Exam: eyes nml inspection Ears, Nose, Throat Exam: normal ENT inspection, pharynx normal Neck Exam: normal inspection, supple, full range of motion Respiratory Exam: normal breath sounds, lungs clear Cardiovascular Exam: regular rate/rhythm, normal heart sounds Gastrointestinal/Abdomen Exam: soft, normal bowel sounds, No tenderness, No guarding Extremity Exam: normal inspection, normal range of motion Neurologic Exam: alert, oriented x 3, cooperative Skin Exam: normal color, warm SpO2 Interpretation: normal SpO2: 100 O2 Delivery: Room Air - Course Nursing assessment & vital signs reviewed: Yes Ordered Tests: Active Orders 24 hr Category Date Time Status Up Ad Prema TOLERATED Activity 03/09/20 15:17 Active Heart Monitoring Q1H Care 03/09/20 15:[address] in Observation ROUTINE Care 03/09/20 15:15 Active House Regular Diet Diet 03/09/20 Dinner Active CBC W DIFF Stat Lab 03/09/20 15:20 Completed CMP Stat Lab 03/09/20 15:20 Completed LIPASE Stat Lab 03/09/20 18:11 Completed UA W/RFX UR CULTURE Stat Lab 03/09/20 17:30 Completed Medication Summary Generic Name Dose Route Start Last Admin Trade Name Freq PRN Reason Stop Dose Admin Ondansetron HCl 4 mg 03/09/20 15:19 03/09/20 16:18 Zofran 4 Mg/2 Ml Vial IV 04/08/20 15:18 4 mg Q6H PRN PRN Administration NAUSEA/VOMITING Discontinued Medications Generic Name Dose Route Start Last Admin Trade Name Freq PRN Reason Stop Dose Admin Lactated Ringer's 1,000 mls @ 999 mls/hr 03/09/20 15:19 03/09/20 18:07 Lactated Ringers IV 03/09/20 16:19 Infused .Q1H1M ONE Infusion Lactated Ringer's Confirm 03/09/20 16:17 Lactated Ringers Administered 03/09/20 16:18 Dose 1,000 mls @ ud IV .STK-MED ONE Sodium Chloride 1,000 mls @ 999 mls/hr 03/09/20 16:34 03/09/20 16:55 Sodium Chloride 0.9% 1000 Ml IV 03/09/20 17:34 Not Given .Q1H1M STA Ondansetron HCl Confirm 03/09/20 16:17 Zofran 4 Mg/2 Ml Vial Administered 03/09/20 16:18 Dose 4 mg .ROUTE .STK-MED ONE Promethazine HCl 12.5 mg 03/09/20 18:02 03/09/20 18:08 Phenergan 25 Mg Inj IM 03/09/20 18:03 12.5 mg STAT ONE Administration Promethazine HCl Confirm 03/09/20 18:08 Phenergan 25 Mg Inj Administered 03/09/20 18:09 Dose 25 mg .ROUTE .STK-MED ONE Lab/Rad Data: Laboratory Result Diagrams 03/09/20 15:20 03/09/20 15:20 Laboratory Results 03/09/20 03/09/20 03/09/20 Range/Units 18:11 17:30 15:20 WBC (4.0-10.5) K/mm3 RBC (4.1-5.4) M/mm3 Hgb (12.0-16.0) gm/dl Hct (35-47) % MCV (78-100) fl MCH (26-32) pg MCHC (32-36) g/dl RDW (11.5-14.0) % Plt Count (150-450) K/mm3 MPV (7.5-11.0) fl Gran % (36.0-66.0) % Eos # (Auto) (0-0.5) Absolute Lymphs (auto) (1.0-4.6) Absolute Monos (auto) (0.0-1.3) Lymphocytes % (24.0-44.0) % Monocytes % (0.0-12.0) % Eosinophils % (0.00-5.0) % Basophils % (0.0-0.4) % Absolute Granulocytes (1.4-6.9) Basophils # (0-0.4) Sodium 135 L (137-145) mmol/L Potassium 4.4 (3.5-5.1) mmol/L Chloride 103 (98-107) mmol/L Carbon Dioxide 20 L (22-30) mmol/L Anion Gap 16.0 H (5-15) MEQ/L BUN 8 (7-17) mg/dL Creatinine 0.66 (0.52-1.04) mg/dL Estimated GFR > 60.0 ML/MIN Glucose 84 (74-106) mg/dL Calcium 9.8 (8.4-10.2) mg/dL Total Bilirubin 0.80 (0.2-1.3) mg/dL AST 38 H (14-36) U/L ALT 56 H (0-35) U/L Alkaline Phosphatase 75 (38-126) U/L Serum Total Protein 7.9 (6.3-8.2) g/dL Albumin 4.1 (3.5-5.0) g/dL Lipase 32 (23-300) U/L Urine Color MADELEINE (YELLOW) Urine Appearance SLIGHTLY CLOUDY (CLEAR) Urine pH 6.0 (5-6) Ur Specific [place] 1.027 (1.005-1.025) Urine Protein 30 (Negative) Urine Ketones MODERATE (NEGATIVE) Urine Blood NEGATIVE (0-5) Nathan/ul Urine Nitrite NEGATIVE (NEGATIVE) Urine Bilirubin NEGATIVE (NEGATIVE) Urine Urobilinogen 4 (0-1) mg/dL Ur Leukocyte Esterase NEGATIVE (NEGATIVE) Urine WBC (Auto) NONE (0-5) /HPF Urine RBC (Auto) NONE (0-2) /HPF U Epithel Cells (Auto) RARE (FEW) /HPF Urine Bacteria (Auto) NONE (NEGATIVE) /HPF Urine Mucus (Auto) SLIGHT (NEGATIVE) /HPF Urine Culture Reflexed NO (NO) Urine Glucose NEGATIVE (NEGATIVE) mg/dL 03/09/20 Range/Units 15:20 WBC 11.2 H (4.0-10.5) K/mm3 RBC 5.13 (4.1-5.4) M/mm3 Hgb 13.5 (12.0-16.0) gm/dl Hct 42.7 (35-47) % MCV 83.2 (78-100) fl MCH 26.3 (26-32) pg MCHC 31.6 L (32-36) g/dl RDW 14.4 H (11.5-14.0) % Plt Count 102 L (150-450) K/mm3 MPV 13.0 H (7.5-11.0) fl Gran % 79.1 H (36.0-66.0) % Eos # (Auto) 0.13 (0-0.5) Absolute Lymphs (auto) 1.83 (1.0-4.6) Absolute Monos (auto) 0.35 (0.0-1.3) Lymphocytes % 16.4 L (24.0-44.0) % Monocytes % 3.1 (0.0-12.0) % Eosinophils % 1.2 (0.00-5.0) % Basophils % 0.2 (0.0-0.4) % Absolute Granulocytes 8.84 H (1.4-6.9) Basophils # 0.02 (0-0.4) Sodium (137-145) mmol/L Potassium (3.5-5.1) mmol/L Chloride (98-107) mmol/L Carbon Dioxide (22-30) mmol/L Anion Gap (5-15) MEQ/L BUN (7-17) mg/dL Creatinine (0.52-1.04) mg/dL Estimated GFR ML/MIN Glucose (74-106) mg/dL Calcium (8.4-10.2) mg/dL Total Bilirubin (0.2-1.3) mg/dL AST (14-36) U/L ALT (0-35) U/L Alkaline Phosphatase (38-126) U/L Serum Total Protein (6.3-8.2) g/dL Albumin (3.5-5.0) g/dL Lipase (23-300) U/L Urine Color (YELLOW) Urine Appearance (CLEAR) Urine pH (5-6) Ur Specific [place] (1.005-1.025) Urine Protein (Negative) Urine Ketones (NEGATIVE) Urine Blood (0-5) Nathan/ul Urine Nitrite (NEGATIVE) Urine Bilirubin (NEGATIVE) Urine Urobilinogen (0-1) mg/dL Ur Leukocyte Esterase (NEGATIVE) Urine WBC (Auto) (0-5) /HPF Urine RBC (Auto) (0-2) /HPF U Epithel Cells (Auto) (FEW) /HPF Urine Bacteria (Auto) (NEGATIVE) /HPF Urine Mucus (Auto) (NEGATIVE) /HPF Urine Culture Reflexed (NO) Urine Glucose (NEGATIVE) mg/dL - Progress Progress: improved Progress Note: 03/09/20 18:31 she is given IV fluid and Zofran and did not have any vomiting while in the ER. Although she is nauseated and given IM Phenergan. Lab work consistent with mild dehydration. No signs of UTI. No other acute findings in the work-up. She has no pelvic cramping or discharge or bleeding. Do not think she needs any further work-up. Recommended outpatient follow-up with her OB for reevaluation. Recommended continue with antiemetic which she has at home. Discussed signs symptoms of worsening needing return which she seems understanding. Stable for discharge. Counseled pt/family regarding: lab results, diagnosis, need for follow-up - Departure Departure Disposition: Home Clinical Impression: Hyperemesis gravidarum Condition: Stable Critical Care Time: No Referrals: GERTRUDIS TIMMONS MD [Primary Care Provider] - (2 days for re evaluation ) Instructions: Hyperemesis Gravidarum, Nausea and Vomiting of (DC) Additional Instructions: Drink plenty of fluids. Take Zofran and Phenergan as needed. Follow-up with your OB for reevaluation. Return to ER for worsening vomiting, abdominal cramping, vaginal bleeding or discharge.
== END 2020-03-09 18:32 | disposition home or self-care (01) ==
LOC: EDSTATUS 15:40 → ED 15:40
DX: O21.0 Mild hyperemesis gravidarum (principal); Z3A.09 9 weeks gestation of pregnancy
CPT/HCPCS: 36000; 36415; 80053; 81001; 83690; 85025; 96360; 96374; 99284; J2405; J2550

== ENCOUNTER 2020-09-27 11:47 | Observation (INO) | payer BC ==
[2020-09-27 12:49] LABS: Absolute Neutrophil Ct (ANC) 6.62 (1.4-6.9); BASOPHIL % 0.2 % (0.0-0.4); Basophil (Absolute #) 0.02 (0-0.4); Eosinophil % 0.9 % (0.00-5.0); Eosinophil (Absolute #) 0.08 (0-0.5); Hematocrit 32.9 % (35-47); Hemoglobin 10.1 gm/dl (12.0-16.0); Lymphocytes % 19.9 % (24.0-44.0); Mean Corpuscular Hemoglobin 23.7 pg (26-32); Mean Corpuscular Hgb Concent. 30.7 g/dl (32-36); Mean Platelet Volume 10.2 fl (7.5-11.0); Monocyte (Absolute #) 0.53 (0.0-1.3); Monocytes % 5.9 % (0.0-12.0); Neutrophil % 73.1 % (36.0-66.0); Platelet Count 209 K/mm3 (150-450); Red Blood Count 4.27 M/mm3 (4.1-5.4); Red Cell Distribution Width 16.4 % (11.5-14.0); White Blood Count 9.1 K/mm3 (4.0-10.5)
[2020-09-27 13:07] LABS: ALBUMIN 3.5 g/dL (3.5-5.0); ALKALINE PHOSPHATASE 470 U/L (38-126); ANION GAP 11.2 MEQ/L (5-15); BLOOD UREA NITROGEN 8 mg/dL (7-17); CHLORIDE 103 mmol/L (98-107); Calcium 9.5 mg/dL (8.4-10.2); Carbon Dioxide 23 mmol/L (22-30); Creatinine 1 0.75 mg/dL (0.52-1.04); EST GLOMERULAR FILTRATION RATE > 60.0 ML/MIN; Glucose 76 mg/dL (74-106); Potassium 4.1 mmol/L (3.5-5.1); SGOT/AST 18 U/L (14-36); SGPT/ALT 10 U/L (0-35); SODIUM 133 mmol/L (137-145); Total Protein 6.7 g/dL (6.3-8.2)
[2020-09-27 13:36] VITALS: BP 114/76; PULSE 100
--- NOTE | 2020-09-27 13:36 | XRAY ---
Indication: AMANDA. Limited OB ultrasound performed evaluating AMANDA. Single viable intrauterine with heart rate 145 bpm. 4 quadrant AMANDA is 11.5 cm, previously 9.6 cm on August 20, 2020.
== END 2020-09-27 13:25 | disposition home or self-care (01) ==
LOC: OB 11:47
PROVIDERS: ADMIT Family Medicine; ATTEND Family Medicine
DX: O16.3 Unspecified maternal hypertension, third trimester (principal); Z3A.38 38 weeks gestation of pregnancy
CPT/HCPCS: 36415; 59025; 76815; 80053; 84550; 85025; G0378

== ENCOUNTER 2020-10-02 11:31 | Observation (INO) | payer BC ==
[2020-10-02 12:21] VITALS: O2SAT 99
[2020-10-02 14:04] VITALS: BP 124/74; PULSE 98
== END 2020-10-02 13:45 | disposition home or self-care (01) ==
LOC: OB 11:31
PROVIDERS: ADMIT Family Medicine; ATTEND Family Medicine
DX: Z34.83 Encounter for supervision of other normal pregnancy, third trimester (principal); Z3A.38 38 weeks gestation of pregnancy
CPT/HCPCS: G0378

== ENCOUNTER 2020-10-06 00:21 | Inpatient (IN) | payer BC ==
[2020-10-06] MEDS ORDERED: Lactated Ringers 1,000 ML IV SCH (01:00)
[2020-10-06] MEDS ORDERED: PITOCIN 30 UNITS/ LR 500 ML 30 UNITS/500 ML IV.SOLN. IV SCH (01:00)
[2020-10-06] MEDS ORDERED: PITOCIN 30 UNITS/ LR 500 ML 500 ML IV ONE (01:04)
[2020-10-06] MEDS ORDERED: XYLOCAINE 1% HCL 20 ML MDV ONE (01:54)
[2020-10-06] MEDS ORDERED: Dermoplast Spray ONE (02:23)
[2020-10-06] MEDS ORDERED: TUCKS TP ONE (02:23)
[2020-10-06] MEDS ORDERED: MOTRIN 400 MG ONE (02:23)
[2020-10-06] MEDS ORDERED: TYLENOL EXTRA STRENGTH 500 MG PO PRN (02:29)
[2020-10-06] MEDS ORDERED: CORTISONE 1% CREAM TP PRN (02:29)
[2020-10-06] MEDS ORDERED: Dulcolax 10 MG SUPP PR PRN (02:29)
[2020-10-06] MEDS ORDERED: Dermoplast Spray TP PRN (02:29)
[2020-10-06] MEDS ORDERED: Anucort-HC SUPPOSITORY PR PRN (02:29)
[2020-10-06] MEDS ORDERED: NORCO 5/325 MG PO PRN (02:29)
[2020-10-06] MEDS ORDERED: Mylicon 80MG PO PRN (02:29)
[2020-10-06] MEDS: MOTRIN 400 MG PO PRN ×2 (02:42→21:05)
[2020-10-06] MEDS: TUCKS TP PRN ×2 (02:44→15:41)
[2020-10-06] MEDS ORDERED: Zofran 4 MG/2 ML VIAL IV PRN (03:02)
[2020-10-06] MEDS ORDERED: XYLOCAINE 1% HCL 20 ML MDV IJ PRN (03:02)
[2020-10-06 03:20] LABS: Absolute Neutrophil Ct (ANC) 8.05 (1.4-6.9); BASOPHIL % 0.2 % (0.0-0.4); Basophil (Absolute #) 0.02 (0-0.4); Eosinophil % 1.1 % (0.00-5.0); Eosinophil (Absolute #) 0.12 (0-0.5); Hematocrit 34.9 % (35-47); Hemoglobin 10.6 gm/dl (12.0-16.0); Lymphocyte (Absolute #) 2.24 (1.0-4.6); Lymphocytes % 20.4 % (24.0-44.0); Mean Cell Volume 76.5 fl (78-100); Mean Corpuscular Hemoglobin 23.2 pg (26-32); Mean Corpuscular Hgb Concent. 30.4 g/dl (32-36); Mean Platelet Volume 10.8 fl (7.5-11.0); Monocyte (Absolute #) 0.55 (0.0-1.3); Neutrophil % 73.3 % (36.0-66.0); Platelet Count 181 K/mm3 (150-450); Red Blood Count 4.56 M/mm3 (4.1-5.4); Red Cell Distribution Width 16.5 % (11.5-14.0)
[2020-10-06 03:37] LABS: Amphetamine,Urine NEGATIVE (NEGATIVE); Barbiturate,Urine NEGATIVE (NEGATIVE); Benzodiazepine,Urine NEGATIVE (NEGATIVE); Cocaine,Urine NEGATIVE (NEGATIVE); Methadone,Urine NEGATIVE (NEGATIVE); Opiate,Urine NEGATIVE (NEGATIVE); PCP,Urine NEGATIVE (NEGATIVE); THC,Urine NEGATIVE (NEGATIVE)
[2020-10-06 05:38] LABS: ABO TYPING A; ANTIBODY SCREEN NEGATIVE (NEGATIVE); RH TYPING NEGATIVE
[2020-10-06] MEDS ORDERED: Adacel Vial IM ONE (10:00)
[2020-10-06] MEDS: Colace 100 MG PO SCH ×2 (11:14→21:05)
[2020-10-06] MEDS: FERREX 150 PO SCH (11:14)
[2020-10-06] MEDS ORDERED: Rhogam Plus 300 MCG IM ONE (12:00)
[2020-10-06 15:59] LABS: Absolute Neutrophil Ct (ANC) 10.05 (1.4-6.9); BASOPHIL % 0.2 % (0.0-0.4); Basophil (Absolute #) 0.02 (0-0.4); Eosinophil % 0.4 % (0.00-5.0); Eosinophil (Absolute #) 0.05 (0-0.5); Hematocrit 31.2 % (35-47); Hemoglobin 9.6 gm/dl (12.0-16.0); Lymphocyte (Absolute #) 2.25 (1.0-4.6); Lymphocytes % 17.1 % (24.0-44.0); Mean Cell Volume 76.8 fl (78-100); Mean Corpuscular Hemoglobin 23.6 pg (26-32); Mean Corpuscular Hgb Concent. 30.8 g/dl (32-36); Mean Platelet Volume 10.1 fl (7.5-11.0); Monocyte (Absolute #) 0.76 (0.0-1.3); Monocytes % 5.8 % (0.0-12.0); Neutrophil % 76.5 % (36.0-66.0); Platelet Count 179 K/mm3 (150-450); Red Blood Count 4.06 M/mm3 (4.1-5.4); Red Cell Distribution Width 16.5 % (11.5-14.0); White Blood Count 13.1 K/mm3 (4.0-10.5)
[2020-10-07 05:08] VITALS: O2SAT 97
[2020-10-07] MEDS: MOTRIN 400 MG PO PRN (08:54)
[2020-10-07] MEDS: Colace 100 MG PO SCH (08:55)
[2020-10-07] MEDS: FERREX 150 PO SCH (08:55)
--- NOTE | 2020-10-07 09:00 | PCM.DS ---
Discharge Summary Date of Admission: 10/06/20 00:21 Admitting Physician: GERTRUDIS TIMMONS Consults: Consults on Case 10/06/20 02:33 Notify Physician ROUTINE Primary Care Provider: GERTRUDIS TIMMONS Allergies Allergies No Known Drug Allergies Allergy (Verified 09/27/20 12:16) Hospital Summary - Hospital Course Hospital Course: born at term via , mild lochia and minimal pain. no problems or concerns - Vitals & Intake/Output Vital Signs: Vital Signs Temperature 97.7 F 10/07/20 02:00 Pulse Rate 80 10/07/20 02:00 Respiratory Rate 18 10/07/20 02:00 Blood Pressure 114/66 10/07/20 02:00 O2 Sat by Pulse Oximetry 97 10/07/20 02:00 Intake & Output: Intake & Output 10/04/20 10/05/20 10/06/20 10/07/20 11:59 11:59 11:59 11:59 Intake Total 1500 650 Balance 1500 650 Weight 97.522 kg - Lab Result Diagrams: 10/06/20 15:50 Lab Results-Last 24 Hrs: Lab Results-Last 24 Hours 10/06/20 10/06/20 Range/Units 04:37 15:50 WBC 13.1 H (4.0-10.5) K/mm3 RBC 4.06 L (4.1-5.4) M/mm3 Hgb 9.6 L (12.0-16.0) gm/dl Hct 31.2 L (35-47) % MCV 76.8 L (78-100) fl MCH 23.6 L (26-32) pg MCHC 30.8 L (32-36) g/dl RDW 16.5 H (11.5-14.0) % Plt Count 179 (150-450) K/mm3 MPV 10.1 (7.5-11.0) fl Gran % 76.5 H (36.0-66.0) % Eos # (Auto) 0.05 (0-0.5) Absolute Lymphs (auto) 2.25 (1.0-4.6) Absolute Monos (auto) 0.76 (0.0-1.3) Lymphocytes % 17.1 L (24.0-44.0) % Monocytes % 5.8 (0.0-12.0) % Eosinophils % 0.4 (0.00-5.0) % Basophils % 0.2 (0.0-0.4) % Absolute Granulocytes 10.05 H (1.4-6.9) Basophils # 0.02 (0-0.4) Screen SEE SEPARATE REPORT Discharge Exam General Appearance: no apparent distress, alert Eye Exam: PERRL, EOMI, eyes nml inspection Respiratory Exam: normal breath sounds, lungs clear, No respiratory distress Cardiovascular Exam: regular rate/rhythm, normal heart sounds Gastrointestinal/Abdomen Exam: soft, No tenderness, No mass Extremity Exam: normal inspection, normal range of motion Skin Exam: normal color, warm, dry Final Diagnosis/Problem List - Final Discharge Diagnosis/Problem (1) Vaginal delivery Current Visit: No Status: Acute Code(s): O80 - ENCOUNTER FOR FULL-TERM UNCOMPLICATED DELIVERY (2) Second degree perineal laceration during delivery Current Visit: Yes Status: Acute Code(s): O70.1 - SECOND DEGREE PERINEAL LACERATION DURING DELIVERY - Discharge Disposition: Home, Self-Care Condition: Stable Prescriptions: New Docusate Sodium 100 mg [Colace 100 MG] 100 mg PO BID #60 capsule Iron Polysaccharides Complex [Ferrex 150] 150 mg PO DAILY #30 capsule Continue Ondansetron [Ondansetron Odt] 4 mg PO Q4-6HPRN PRN PRN Reason: Nausea Follow up with: GERTRUDIS TIMMONS MD [Primary Care Provider] -
[2020-10-07] MEDS: TUCKS TP PRN (13:30)
[2020-10-07 19:36] VITALS: BP 123/63; PULSE 80
== END 2020-10-07 14:30 | disposition home or self-care (01) | DRG 807 ==
LOC: MED SURG 00:21 → OBSVTOIN 00:21 → OB 01:45
PROVIDERS: ADMIT Family Medicine; ATTEND Family Medicine
PROC: 10E0XZZ Delivery of Products of Conception, External Approach (ICD-10-PCS; principal; 2020-10-06)
PROC: 0KQM0ZZ Repair Perineum Muscle, Open Approach (ICD-10-PCS; 2020-10-06)
DX: O70.1 Second degree perineal laceration during delivery (principal); Z37.0 Single live birth; Z3A.39 39 weeks gestation of pregnancy
CPT/HCPCS: 36415; 80307; 85025; 85461; 86850; 86900; 86901; 87340; 90471; 90715; 94799; 96372; G0378; J2590; J2790; A9270-GY

== ENCOUNTER 2021-09-04 04:42 | Emergency (ER) | payer BC ==
[2021-09-04 05:13] VITALS: O2SAT 97
[2021-09-04] MEDS ORDERED: Sodium Chloride 0.9% 1000 ML 1,000 ML IV STA ×2 (05:38→06:39)
[2021-09-04] MEDS ORDERED: Zofran 4 MG/2 ML VIAL IV ONE ×2 (05:38→06:54)
[2021-09-04] MEDS ORDERED: Zofran 4 MG/2 ML VIAL ONE ×2 (05:42→06:55)
[2021-09-04] MEDS ORDERED: Sodium Chloride 0.9% 1000 ML 1,000 ML ONE ×2 (05:42→06:49)
--- NOTE | 2021-09-04 05:59 | ERPHSYRPT ---
- History of Present Illness Source: patient Exam Limitations: no limitations Patient Subjective Stated Complaint: COVID +, VOMITING X3 DAYS Triage Nursing Assessment: pt c/o nausea and vomiting x3 days, tested positive for Covid on 08/29/20, cough, loss of taste and smell, fever off and on, sob at times, headache and body aches. Pt's lungs clear, no distress noted. Vomiting is bile at this time. Abd soft with active bsx4 quad, nontender. Timing/Duration: other (8 days) Cough Quality/Degree: dry cough Possible Cause: no prior episodes Modifying Factors: Improves With: coughing Associated Symptoms: fever, chills, cough, muscle aches, nasal congestion, nasal drainage, shortness of breath, sore throat, No sinus infection, No wheezing Hx Tetanus, Diphtheria Vaccination/Date Given: Yes Hx Influenza Vaccination/Date Given: No Hx Pneumococcal Vaccination/Date Given: No Immunizations Up to Date: No <DOUGLAS GALLEGOS - Last Filed: 09/04/21 07:04> <SAMMIE LOWERY - Last Filed: 09/04/21 07:24> - History of Present Illness Physician History: 31 yo wf +CV19 on 08/29/21 w N/V x3 days/cough-coryza x8 days/SKAGGS/ST/myalgias/fever. (DOUGLAS GALLEGOS) Allergies/Adverse Reactions: No Known Drug Allergies Allergy (Verified 09/04/21 05:07) Home Medications: Albuterol 2.5 mg/3 ml Neb [Proventil 2.5 mg/3 ml Neb] 2 puffs IH Q4HPRN PRN 09/04/21 [History] Benzonatate 200 mg PO TID PRN PRN 09/04/21 [History] Metoprolol Succinate [Toprol Xl] 25 mg PO DAILY 09/04/21 [History] Travel Risk - International Travel Have you traveled outside of the country in past 3 weeks: No - Coronavirus Screening Are you exhibiting any of the following symptoms?: Yes Symptoms: Fever, Cough: New Onset, Shortness of Breath, Vomiting/Diarrhea, Loss of Taste or Smell, Headaches/Body Aches/Fatigue - Vaccine Status Have you recieved a Covid-19 vaccination: No <DOUGLAS GALLEGOS - Last Filed: 09/04/21 07:04> - Review of Systems Constitutional: No Symptoms, Fever, Chills, Lethargy Eyes: No Symptoms Ears, Nose, & Throat: No Symptoms, Nose Congestion, Nose Discharge Respiratory: No Symptoms, Cough, Dyspnea Cardiac: No Symptoms Abdominal/Gastrointestinal: No Symptoms, Nausea, Vomiting, No Diarrhea Genitourinary Symptoms: No Symptoms Musculoskeletal: Arthralgias Skin: No Symptoms Neurological: No Symptoms Psychological: No Symptoms Endocrine: No Symptoms Hematologic/Lymphatic: No Symptoms Immunological/Allergic: No Symptoms <DOUGLAS GALLEGOS - Last Filed: 09/04/21 07:04> - Past Medical History Pertinent Past Medical History: Yes Neurological History: No Pertinent History ENT History: No Pertinent History Cardiac History: Hypertension, Other Respiratory History: Bronchitis Endocrine Medical History: No Pertinent History Musculoskeletal History: No Pertinent History GI Medical History: No Pertinent History History: No Pertinent History Psycho-Social History: No Pertinent History Female Reproductive Disorders: No Pertinent History Other Medical History: leaky valves around heart - Past Surgical History Past Surgical History: Yes (Behind ear) Neuro Surgical History: No Pertinent History Cardiac: No Pertinent History Respiratory: No Pertinent History Gastrointestinal: No Pertinent History Genitourinary: No Pertinent History Musculoskeletal: No Pertinent History Female Surgical History: No Pertinent History Other Surgical History: LEFT EAR SURGERY, CYST REMOVED FROM RIGHT FOOT - Social History Smoking Status: Never smoker Exposure to second hand smoke: No Drug Use: none Patient Lives Alone: No Significant Family History: no pertinent family hx - Female History Hx Last Menstrual Period: 09/01/20 Hx Now: (unknown) <DOUGLAS GALLEGOS - Last Filed: 09/04/21 07:04> - Physical Exam General Appearance: no apparent distress Eye Exam: PERRL/EOMI, eyes nml inspection Ears, Nose, Throat Exam: normal ENT inspection, TMs normal, pharynx normal Neck Exam: normal inspection, non-tender, supple, No meningismus, No mass, No Brudzinski, No Kernig's Respiratory Exam: crackles/rales (Scattered B), No respiratory distress Cardiovascular Exam: regular rate/rhythm, No murmur Gastrointestinal/Abdomen Exam: soft, normal bowel sounds, No tenderness Back Exam: normal inspection, normal range of motion Extremity Exam: normal inspection Neurologic Exam: alert, oriented x 3, cooperative, 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, normal mood/affect, sensation nml, No motor deficits, No sensory deficit Skin Exam: normal color, warm, dry, No rash Lymphatic Exam: No adenopathy SpO2 Interpretation: normal SpO2: 97 O2 Delivery: Room Air <DOUGLAS GALLEGOS - Last Filed: 09/04/21 07:04> - Nursing Vital Signs Nursing Vital Signs: Initial Vital Signs Temperature 98.9 F 09/04/21 04:42 Pulse Rate 93 H 09/04/21 04:42 Respiratory Rate 18 09/04/21 04:42 Blood Pressure 129/80 09/04/21 04:42 O2 Sat by Pulse Oximetry 97 09/04/21 04:42 Pain Scale Pain Intensity 0 WNL (DOUGLAS GALLEGOS) - Radiology Exams Chest X-ray Interpretation: Interpreted by me (Covid appearance) <DOUGLAS GALLEGOS - Last Filed: 09/04/21 07:04> Ordered Tests: Active Orders 24 hr Category Date Time Status CHEST 1 VIEW (PORTABLE) Stat Exams 09/04/21 05:39 Taken CBC W DIFF Stat Lab 09/04/21 05:44 Completed CMP Stat Lab 09/04/21 05:44 Completed HCG QUALITATIVE,SERUM Stat Lab 09/04/21 05:45 Completed TROPONIN Q3H Lab 09/04/21 05:44 Completed TROPONIN Q3H Lab 09/04/21 08:45 Ordered TROPONIN Q3H Lab 09/04/21 11:45 Ordered TROPONIN Q3H Lab 09/04/21 14:45 Ordered TROPONIN Q3H Lab 09/04/21 17:45 Ordered UA W/RFX UR CULTURE Stat Lab 09/04/21 05:50 Completed Medication Summary Generic Name Dose Route Start Last Admin Trade Name Freq PRN Reason Stop Dose Admin Sodium Chloride 1,000 mls @ 999 mls/hr 09/04/21 06:39 09/04/21 06:52 Sodium Chloride 0.9% 1000 Ml IV 09/04/21 07:39 999 mls/hr .Q1H1M STA Administration Discontinued Medications Generic Name Dose Route Start Last Admin Trade Name Freq PRN Reason Stop Dose Admin Sodium Chloride 1,000 mls @ 999 mls/hr 09/04/21 05:38 09/04/21 06:47 Sodium Chloride 0.9% 1000 Ml IV 09/04/21 06:38 Infused .Q1H1M STA Infusion Sodium Chloride Confirm 09/04/21 05:42 Sodium Chloride 0.9% 1000 Ml Administered 09/04/21 05:43 Dose 1,000 mls @ ud .ROUTE .STK-MED ONE Sodium Chloride Confirm 09/04/21 06:49 Sodium Chloride 0.9% 1000 Ml Administered 09/04/21 06:50 Dose 1,000 mls @ ud .ROUTE .STK-MED ONE Ondansetron HCl 4 mg 09/04/21 05:38 09/04/21 05:46 Ondansetron Hcl 4 Mg/2 Ml Vial IV 09/04/21 05:39 4 mg STAT ONE Administration Ondansetron HCl Confirm 09/04/21 05:42 Ondansetron Hcl 4 Mg/2 Ml Vial Administered 09/04/21 05:43 Dose 4 mg .ROUTE .STK-MED ONE Ondansetron HCl 4 mg 09/04/21 06:54 09/04/21 06:56 Ondansetron Hcl 4 Mg/2 Ml Vial IV 09/04/21 06:55 4 mg STAT ONE Administration Ondansetron HCl Confirm 09/04/21 06:55 Ondansetron Hcl 4 Mg/2 Ml Vial Administered 09/04/21 06:56 Dose 4 mg .ROUTE .STK-MED ONE Lab/Rad Data: Laboratory Result Diagrams 09/04/21 05:44 09/04/21 05:44 Laboratory Results 09/04/21 09/04/21 09/04/21 Range/Units 05:50 05:45 05:44 WBC (4.0-10.5) K/mm3 RBC (4.1-5.4) M/mm3 Hgb (12.0-16.0) gm/dl Hct (35-47) % MCV (78-100) fl MCH (26-32) pg MCHC (32-36) g/dl RDW (11.5-14.0) % Plt Count (150-450) K/mm3 MPV (7.5-11.0) fl Gran % (36.0-66.0) % Eos # (Auto) (0-0.5) Absolute Lymphs (auto) (1.0-4.6) Absolute Monos (auto) (0.0-1.3) Lymphocytes % (24.0-44.0) % Monocytes % (0.0-12.0) % Eosinophils % (0.00-5.0) % Basophils % (0.0-0.4) % Absolute Granulocytes (1.4-6.9) Basophils # (0-0.4) Sodium (137-145) mmol/L Potassium (3.5-5.1) mmol/L Chloride (98-107) mmol/L Carbon Dioxide (22-30) mmol/L Anion Gap (5-15) MEQ/L BUN (7-17) mg/dL Creatinine (0.52-1.04) mg/dL Estimated GFR ML/MIN Glucose (74-106) mg/dL Calcium (8.4-10.2) mg/dL Total Bilirubin (0.2-1.3) mg/dL AST (14-36) U/L ALT (0-35) U/L Alkaline Phosphatase (38-126) U/L Troponin I < 0.012 (0.000-0.034) ng/mL Serum Total Protein (6.3-8.2) g/dL Albumin (3.5-5.0) g/dL Serum , Qual NEGATIVE (Negative) Urine Color [place] (YELLOW) Urine Appearance SLIGHTLY CLOUDY (CLEAR) Urine pH 5.0 (5-6) Ur Specific [place] 1.035 (1.005-1.025) Urine Protein 100 (Negative) Urine Ketones SMALL (NEGATIVE) Urine Blood NEGATIVE (0-5) Nathan/ul Urine Nitrite NEGATIVE (NEGATIVE) Urine Bilirubin NEGATIVE (NEGATIVE) Urine Urobilinogen 2 (0-1) mg/dL Ur Leukocyte Esterase NEGATIVE (NEGATIVE) Urine WBC (Auto) 3-5 (0-5) /HPF Urine RBC (Auto) 0-2 (0-2) /HPF U Epithel Cells (Auto) RARE (FEW) /HPF Urine Bacteria (Auto) NONE (NEGATIVE) /HPF Urine Mucus (Auto) SLIGHT (NEGATIVE) /HPF Urine Culture Reflexed NO (NO) Urine Glucose NEGATIVE (NEGATIVE) mg/dL 09/04/21 09/04/21 Range/Units 05:44 05:44 WBC 5.1 (4.0-10.5) K/mm3 RBC 5.33 (4.1-5.4) M/mm3 Hgb 13.0 (12.0-16.0) gm/dl Hct 42.0 (35-47) % MCV 78.8 (78-100) fl MCH 24.4 L (26-32) pg MCHC 31.0 L (32-36) g/dl RDW 14.9 H (11.5-14.0) % Plt Count 134 L (150-450) K/mm3 MPV 12.8 H (7.5-11.0) fl Gran % 77.7 H (36.0-66.0) % Eos # (Auto) 0 (0-0.5) Absolute Lymphs (auto) 0.89 L (1.0-4.6) Absolute Monos (auto) 0.25 (0.0-1.3) Lymphocytes % 17.4 L (24.0-44.0) % Monocytes % 4.9 (0.0-12.0) % Eosinophils % 0.0 (0.00-5.0) % Basophils % 0.0 (0.0-0.4) % Absolute Granulocytes 3.98 (1.4-6.9) Basophils # 0 (0-0.4) Sodium 140 (137-145) mmol/L Potassium 4.7 (3.5-5.1) mmol/L Chloride 104 (98-107) mmol/L Carbon Dioxide 24 (22-30) mmol/L Anion Gap 16.7 H (5-15) MEQ/L BUN 14 (7-17) mg/dL Creatinine 1.03 (0.52-1.04) mg/dL Estimated GFR > 60.0 ML/MIN Glucose 93 (74-106) mg/dL Calcium 9.1 (8.4-10.2) mg/dL Total Bilirubin 0.90 (0.2-1.3) mg/dL AST 58 H (14-36) U/L ALT 70 H (0-35) U/L Alkaline Phosphatase 64 (38-126) U/L Troponin I (0.000-0.034) ng/mL Serum Total Protein 7.5 (6.3-8.2) g/dL Albumin 4.5 (3.5-5.0) g/dL Serum , Qual (Negative) Urine Color (YELLOW) Urine Appearance (CLEAR) Urine pH (5-6) Ur Specific [place] (1.005-1.025) Urine Protein (Negative) Urine Ketones (NEGATIVE) Urine Blood (0-5) Nathan/ul Urine Nitrite (NEGATIVE) Urine Bilirubin (NEGATIVE) Urine Urobilinogen (0-1) mg/dL Ur Leukocyte Esterase (NEGATIVE) Urine WBC (Auto) (0-5) /HPF Urine RBC (Auto) (0-2) /HPF U Epithel Cells (Auto) (FEW) /HPF Urine Bacteria (Auto) (NEGATIVE) /HPF Urine Mucus (Auto) (NEGATIVE) /HPF Urine Culture Reflexed (NO) Urine Glucose (NEGATIVE) mg/dL - Progress Counseled pt/family regarding: rad results <DOUGLAS GALLEGOS - Last Filed: 09/04/21 07:04> - Progress Progress: improved, re-examined Air Movement: good Counseled pt/family regarding: lab results, diagnosis, need for follow-up <SAMMIE LOWERY - Last Filed: 09/04/21 07:24> - Progress Progress Note: 09/04/21 06:55 1L NS bolus/4mg IV Zofran 09/04/21 07:[address] over to [address] Lowery at 7:00AM (DOUGLAS GALLEGOS) <DOUGLAS GALLEGOS - Last Filed: 09/04/21 07:04> - Departure Departure Disposition: Home Critical Care Time: No <SAMMIE LOWERY - Last Filed: 09/04/21 07:24> - Departure Clinical Impression: COVID-19, Nausea & vomiting Condition: Stable Referrals: GERTRUDIS TIMMONS MD [Primary Care Provider] - Follow up/PCP as directed Additional Instructions: Drink plenty of fluids before advancing diet. Take your medication as prescribed. Prescriptions: Ondansetron ODT 4 MG [Zofran Odt 4 mg] 4 mg PO Q6H PRN PRN #10 tablet PRN Reason: Vomiting Hydrocodone/Acetaminophen [Hydrocodone-Acetamn 7.5-325/15] 10 ml PO Q8H PRN PRN #120 ml MDD 30 ml PRN Reason: Cough Prednisone 10 mg [Deltasone 10 mg] 10 mg PO TID #12 tablet
[2021-09-04 06:06] LABS: Absolute Neutrophil Ct (ANC) 3.98 (1.4-6.9); Basophil (Absolute #) 0 (0-0.4); Eosinophil (Absolute #) 0 (0-0.5); Lymphocyte (Absolute #) 0.89 (1.0-4.6); Lymphocytes % 17.4 % (24.0-44.0); Mean Cell Volume 78.8 fl (78-100); Mean Corpuscular Hemoglobin 24.4 pg (26-32); Mean Platelet Volume 12.8 fl (7.5-11.0); Monocyte (Absolute #) 0.25 (0.0-1.3); Monocytes % 4.9 % (0.0-12.0); Neutrophil % 77.7 % (36.0-66.0); Platelet Count 134 K/mm3 (150-450); Red Blood Count 5.33 M/mm3 (4.1-5.4); Red Cell Distribution Width 14.9 % (11.5-14.0); White Blood Count 5.1 K/mm3 (4.0-10.5)
[2021-09-04 06:07] LABS: Appearance SLIGHTLY CLOUDY (CLEAR); Bilirubin NEGATIVE (NEGATIVE); Blood NEGATIVE Ery/ul (0-5); Epithelial Cells RARE /HPF (FEW); Glucose NEGATIVE (NEGATIVE); Ketones SMALL (NEGATIVE); Leukocyte Esterase NEGATIVE (NEGATIVE); Mucus SLIGHT /HPF (NEGATIVE); Nitrite NEGATIVE (NEGATIVE); Protein,Urine Dip 100 (Negative); RBC 0-2 /HPF (0-2); Specific Gravity 1.035 (1.005-1.025); Urobilinogen 2 mg/dL (0-1)
[2021-09-04 06:42] LABS: ALBUMIN 4.5 g/dL (3.5-5.0); ALKALINE PHOSPHATASE 64 U/L (38-126); ANION GAP 16.7 MEQ/L (5-15); BLOOD UREA NITROGEN 14 mg/dL (7-17); CHLORIDE 104 mmol/L (98-107); Calcium 9.1 mg/dL (8.4-10.2); Carbon Dioxide 24 mmol/L (22-30); Creatinine 1 1.03 mg/dL (0.52-1.04); EST GLOMERULAR FILTRATION RATE > 60.0 ML/MIN; Glucose 93 mg/dL (74-106); SGOT/AST 58 U/L (14-36); SGPT/ALT 70 U/L (0-35); SODIUM 140 mmol/L (137-145); Total Protein 7.5 g/dL (6.3-8.2)
[2021-09-04 06:50] LABS: Potassium 4.7 mmol/L (3.5-5.1)
[2021-09-04] MEDS ORDERED: HYDROCODONE-ACETAMIN 2.5-108/5 ML SOLUTION PO STA (07:29)
[2021-09-04] MEDS ORDERED: solu-MEDROL 125 MG, Sterile H2O 10 ml 2 ML IV ONE ×2 (07:29)
[2021-09-04] MEDS ORDERED: HYDROCODONE-ACETAMIN 2.5-108/5 ML SOLUTION ONE (07:36)
[2021-09-04] MEDS ORDERED: Sterile H2O 10 ml IJ ONE (07:36)
[2021-09-04] MEDS ORDERED: solu-MEDROL ONE (07:36)
[2021-09-04 08:15] VITALS: BP 117/70; PULSE 88
--- NOTE | 2021-09-04 09:27 | XRAY ---
Indication: Cough, congestion, short of breath. Positive Covid 19. Comparison: December 13, 2020. Portable chest demonstrates new mild diffuse bilateral patchy airspace disease without consolidation/large effusion. Remaining heart and bony thorax normal.
== END 2021-09-04 08:13 | disposition home or self-care (01) ==
LOC: ED 04:42
DX: U07.1 COVID-19 (principal); R11.2 Nausea with vomiting, unspecified; R05.9 Cough, unspecified; R51.9 Headache, unspecified; J02.9 Acute pharyngitis, unspecified; M79.10 Myalgia, unspecified site; R50.9 Fever, unspecified; I10 Essential (primary) hypertension; Z79.891 Long term (current) use of opiate analgesic; Z79.52 Long term (current) use of systemic steroids
CPT/HCPCS: 36000; 36415; 71045; 80053; 81001; 81025; 84484; 85025; 96374; 96375; 96376; 99284; J2405; J2930; A9270-GY